=== PATIENT | female | born 1960 | race African-American/Black ===

== ENCOUNTER 2017-05-27 09:32 | Emergency (ER) | payer MEDICAID ==
[~2017-05-27] VITALS: Ht 167.6 cm; Wt 76.0 kg
[~2017-05-27 09:32] MED LIST: AMLO1TAB39 PO; ASPI-1159 PO; ATOR40TA70 PO; CHLO25TA27 PO; CHOL20004 PO; CITA20TA19 PO; DIVA-18 PO; LOSA50TA20 PO
[2017-05-27] MEDS ORDERED: LORAZEPAM 1MG TABLET PO ONE (10:45)
[2017-05-27] MEDS ORDERED: ACETAMINOPHEN WITH CODEINE 300/30MG TABLET PO ONE ×2 (10:45→12:30)
[2017-05-27 13:10] VITALS: BP 127/85
== END 2017-05-27 14:01 | disposition home or self-care (01) ==
LOC: ER 09:32
DX: S06.0X0A Concussion without loss of consciousness, initial encounter (principal); F17.200 Nicotine dependence, unspecified, uncomplicated; I10 Essential (primary) hypertension; Z79.82 Long term (current) use of aspirin; Y08.89XA Assault by other specified means, initial encounter; Y93.89 Activity, other specified; Y92.89 Other specified places as the place of occurrence of the external cause; Y99.8 Other external cause status
CPT/HCPCS: 70450; 99284

== ENCOUNTER 2018-07-12 12:52 | Emergency (ER) | payer MEDICAID ==
[~2018-07-12] VITALS: Ht 167.6 cm; Wt 63.0 kg
[2018-07-12] MEDS ORDERED: OXYCODONE HCL 5MG TABLET PO ONE (20:00)
[2018-07-12] MEDS ORDERED: ACETAMINOPHEN 325MG TABLET PO ONE (21:15)
[2018-07-12 23:17] VITALS: BP 127/68
== END 2018-07-13 00:10 | disposition home or self-care (01) ==
LOC: ER 12:52
DX: M25.572 Pain in left ankle and joints of left foot (principal); I10 Essential (primary) hypertension; F17.200 Nicotine dependence, unspecified, uncomplicated; F14.10 Cocaine abuse, uncomplicated; Z88.6 Allergy status to analgesic agent; Z79.82 Long term (current) use of aspirin; V03.10XA Pedestrian on foot injured in collision with car, pick-up truck or van in traffic accident, initial encounter; Y93.89 Activity, other specified; Y92.488 Other paved roadways as the place of occurrence of the external cause
CPT/HCPCS: 73610; 99284

== ENCOUNTER 2021-12-06 02:13 | Inpatient (IN) | payer MEDICAID, OTHER ==
[~2021-12-06] VITALS: Ht 165.1 cm; Wt 69.9 kg
[~2021-12-06 02:13] MED LIST changes: -ASPI-1159 PO; +ASPI-1497 PO; -LOSA50TA20 PO; +LOSA50TA41 PO
[2021-12-06 04:39] LABS: BASOPHILS % 0.6 % (0.0-2.0); EOSINOPHILS % 0.1 % (0.0-5.0); HEMATOCRIT. 39.3 % (36.0-48.0); LYMPHOCYTES % 18.9 % (20.0-50.0); MEAN CORPUSCULAR HEMOGLOBIN 28.9 pg (28.0-32.0); MEAN CORPUSCULAR VOLUME 87.2 fL (81.0-99.0); MEAN PLATELET VOLUME 8.4 fl (7.4-10.4); MONOCYTES % 6.1 % (2.0-8.0); NEUTROPHILS % 74.3 % (40.0-76.0); PLATELET 264 x1000/uL (130-400); RED BLOOD CELL COUNT 4.51 mill/uL (4.2-5.4); RED CELL DISTRIBUTION WIDTH 14.7 % (11.6-14.6)
[2021-12-06 04:49] LABS: CHLORIDE 105 mEq/L (98-107)
[2021-12-06] MEDS ORDERED: IOHEXOL-300 100 ML BOTTLE ONE (07:24)
[2021-12-06] MEDS ORDERED: ACETAMINOPHEN 325MG TABLET PO PRN (07:30)
[2021-12-06] MEDS ORDERED: IPRATROPIUM/ALBUTEROL 0.5-3(2.5)MG/3ML NEB HHN PRN (07:30)
[2021-12-06] MEDS ORDERED: GUAIFENESIN 200MG/10ML SUGAR FREE UDC PO PRN (07:30)
[2021-12-06] MEDS ORDERED: ONDANSETRON HCL 4MG/2ML INJ IV PRN (07:30)
[2021-12-06] MEDS ORDERED: LORAZEPAM 2MG/ML CPJ IV PRN (07:30)
[2021-12-06] MEDS ORDERED: DIPHENHYDRAMINE 50MG/ML VIAL IV PRN (07:30)
[2021-12-06] MEDS ORDERED: HYDRALAZINE 20MG/ML VIAL IV PRN (07:30)
[2021-12-06] MEDS ORDERED: DOCUSATE SODIUM 100MG CAPSULE PO PRN (09:00)
[2021-12-06] MEDS ORDERED: MAGNESIUM/ALUMINUM HYDROXIDE/SIMETHICONE 30ML UDC PO PRN (09:00)
[2021-12-06] MEDS: ENOXAPARIN 40MG/0.4ML SYR SUBCUT SCH (10:34)
[2021-12-06] MEDS: HYDROCODONE/ACETAMINOPHEN 5/325MG TABLET PO PRN ×2 (10:34→16:22)
[2021-12-06] MEDS: MORPHINE SULFATE 2 MG/ML CPJ (NOT FOR IM USE) IV PRN (12:48)
[2021-12-06] MEDS: SODIUM CHLORIDE 0.9% INJ 3ML FLUSH IVF SCH ×2 (19:09→23:53)
[2021-12-06] MEDS ORDERED: NALOXONE HCL 0.4MG/ML VIAL IV PRN (21:45)
[2021-12-06] MEDS: CLONIDINE 0.1MG TABLET PO PRN (22:22)
[2021-12-06 22:29] LABS: CREATINE KINASE MB FRACTION 5.9 ng/mL (0.5-3.6)
[2021-12-07] VITALS (7 sets, daily range): BP systolic 127–177; BP diastolic 82–116
[2021-12-07] MEDS: SODIUM CHLORIDE 0.9% INJ 3ML FLUSH IVF SCH ×3 (06:22→22:03)
[2021-12-07] MEDS: CLONIDINE 0.1MG TABLET PO PRN (06:28)
[2021-12-07] MEDS: ENOXAPARIN 40MG/0.4ML SYR SUBCUT SCH (08:28)
[2021-12-07 12:03] LABS: BASOPHILS % 0.7 % (0.0-2.0); EOSINOPHILS % 1.2 % (0.0-5.0); HEMATOCRIT. 36.7 % (36.0-48.0); HEMOGLOBIN. 12.5 g/dL (12.0-16.0); MEAN CORPUSCULAR HEMOGLOBIN 29.5 pg (28.0-32.0); MEAN CORPUSCULAR VOLUME 86.6 fL (81.0-99.0); MEAN PLATELET VOLUME 8.5 fl (7.4-10.4); MONOCYTES % 7.6 % (2.0-8.0); NEUTROPHILS % 58.5 % (40.0-76.0); PLATELET 260 x1000/uL (130-400); RED BLOOD CELL COUNT 4.24 mill/uL (4.2-5.4); RED CELL DISTRIBUTION WIDTH 14.9 % (11.6-14.6)
[2021-12-07] MEDS: MORPHINE SULFATE 2 MG/ML CPJ (NOT FOR IM USE) IV PRN (12:08)
[2021-12-07 12:15] LABS: CHLORIDE 104 mEq/L (98-107)
[2021-12-08] VITALS (7 sets, daily range): BP systolic 141–180; BP diastolic 80–118
[2021-12-08] MEDS: SODIUM CHLORIDE 0.9% INJ 3ML FLUSH IVF SCH ×3 (05:59→21:02)
[2021-12-08] MEDS: ENOXAPARIN 30MG/0.3ML SYR SUBCUT SCH (08:36)
[2021-12-08] MEDS: HYDROCODONE/ACETAMINOPHEN 5/325MG TABLET PO PRN ×2 (08:36→14:02)
[2021-12-08] MEDS: CLONIDINE 0.1MG TABLET PO PRN (21:12)
[2021-12-09 04:00] VITALS: BP 170/90
[2021-12-09] MEDS: SODIUM CHLORIDE 0.9% INJ 3ML FLUSH IVF SCH (05:11)
[2021-12-09] MEDS: CLONIDINE 0.1MG TABLET PO PRN (05:13)
[2021-12-09 08:00] VITALS: BP 139/85
[2021-12-09] MEDS: ENOXAPARIN 30MG/0.3ML SYR SUBCUT SCH (09:46)
[2021-12-09 12:00] VITALS: BP 169/111
[2021-12-09 16:00] VITALS: BP 149/96
[2021-12-09 16:17] VITALS: BP 149/96
== END 2021-12-09 17:20 | disposition home or self-care (01) | DRG 203 ==
LOC: ER 02:13 → ENRESERV 20:10 → 7EST 21:05
PROVIDERS: ADMIT Internal Medicine; ATTEND Internal Medicine
DX: M94.0 Chondrocostal junction syndrome [Tietze] (principal); N17.0 Acute kidney failure with tubular necrosis; I11.9 Hypertensive heart disease without heart failure; K76.0 Fatty (change of) liver, not elsewhere classified; E78.5 Hyperlipidemia, unspecified; F10.129 Alcohol abuse with intoxication, unspecified; R77.8 Other specified abnormalities of plasma proteins; I36.1 Nonrheumatic tricuspid (valve) insufficiency; M25.562 Pain in left knee; V43.52XA Car driver injured in collision with other type car in traffic accident, initial encounter; Y92.410 Unspecified street and highway as the place of occurrence of the external cause; Z88.8 Allergy status to other drugs, medicaments and biological substances; Z79.899 Other long term (current) drug therapy; Z79.82 Long term (current) use of aspirin; Y93.89 Activity, other specified; Y92.89 Other specified places as the place of occurrence of the external cause; Y99.8 Other external cause status; M17.12 Unilateral primary osteoarthritis, left knee
CPT/HCPCS: 36415; 71046; 73560; 74177; 80053; 80320; 82550; 82553; 84443; 84484; 85025; 93005; 93306; 93970; 99285; J0360; J1650; J2270; J2405; Q9967; G0480

== ENCOUNTER 2023-12-15 23:26 | Inpatient (IN) | payer MEDICAID ==
[~2023-12-15] VITALS: Ht 167.6 cm; Wt 65.8 kg
[~2023-12-15 23:26] MED LIST changes: -AMLO1TAB39 PO; +ATEN-42 PO; +BLOO-1823 TP; +DOCU-150 GT; +FAMO20TA8 GT; +INSU100I53 SUBCUT; +SENN-257 GT; +TOBR40VI2 INH; +VANJ5 PO; +[UNRECOGNIZED DRUG - CODE] SQ
[2023-12-16] VITALS (7 sets, daily range): BP systolic 131–174; BP diastolic 97–107; PULSE 84–112; RESP 16–20; TEMP 97–97.8; O2SAT 88–100
[2023-12-16 01:08] LABS: BASOPHILS % 0.7 % (0.0-2.0); EOSINOPHILS % 2.4 % (0.0-5.0); HEMOGLOBIN. 11.6 g/dL (12.0-16.0); LYMPHOCYTES % 24.9 % (20.0-50.0); MEAN CORPUSCULAR HGB CONC 32.3 g/dL (31.0-37.0); MEAN CORPUSCULAR VOLUME 80.6 fL (81.0-99.0); MEAN PLATELET VOLUME 9.7 fl (7.4-10.4); MONOCYTES % 7.5 % (2.0-8.0); NEUTROPHILS % 64.5 % (40.0-76.0); PLATELET 257 x1000/uL (130-400); RED BLOOD CELL COUNT 4.47 mill/uL (4.2-5.4); RED CELL DISTRIBUTION WIDTH 17.6 % (11.6-14.6)
[2023-12-16 01:20] LABS: ALANINE AMINOTRANSFERASE 21 IU/L (10-49); ALBUMIN 4.3 g/dL (3.2-4.8); ASPARTATE AMINOTRANSFERASE 16 IU/L (<34); BILIRUBIN TOTAL 0.4 mg/dL (0.1-1.0); CALCIUM 9.1 mg/dL (8.7-10.4); CARBON DIOXIDE 29 mEq/L (21-32); CHLORIDE 102 mEq/L (98-107); CREATININE 0.7 mg/dL (0.6-1.0); GLUCOSE 92 mg/dL (70-105); POTASSIUM 3.7 mEq/L (3.5-5.1); SODIUM 138 mEq/L (136-145); TROPONIN I HIGH SENSITIVITY 21 ng/L (3.0-34); UREA NITROGEN BLOOD 32 mg/dL (9-23)
[2023-12-16 01:23] LABS: PROTEIN TOTAL 8.2 g/dL (6.0-8.3)
[2023-12-16] MEDS: PIPERACILLIN/TAZO 3.375G/50ML 50 ML IV ONE (01:40)
[2023-12-16] MEDS: SODIUM CHLORIDE 0.9% 1000ML BAG (SEPSIS BOLUS) IV ONE (01:40)
[2023-12-16] MEDS: VANCOMYCIN 1G PREMIX 200 ML IV ONE (02:30)
[2023-12-16] MEDS ORDERED: IPRATROPIUM/ALBUTEROL 0.5-3(2.5)MG/3ML NEB HHN PRN (05:00)
[2023-12-16] MEDS ORDERED: DOCUSATE SODIUM 100MG CAPSULE PO PRN (05:00)
[2023-12-16] MEDS ORDERED: MAGNESIUM/ALUMINUM HYDROXIDE/SIMETHICONE 30ML UDC PO PRN (05:00)
[2023-12-16] MEDS ORDERED: GUAIFENESIN 200MG/10ML SUGAR FREE UDC PO PRN (05:00)
[2023-12-16] MEDS ORDERED: DEXTROSE 50% WATER 50ML SYRINGE IV PRN (05:45)
[2023-12-16 05:52] LABS: CLARITY URINE CLEAR (CLEAR); COLOR URINE YELLOW (YELLOW); GLUCOSE URINE NEGATIVE (NEGATIVE); KETONES URINE NEGATIVE (NEGATIVE); LEUKOCYTE ESTERASE URINE 1+ (NEGATIVE); NITRITE URINE POSITIVE (NEGATIVE); OCCULT BLOOD URINE NEGATIVE (NEGATIVE); PH URINE 7.5 (4.5-8.0); PROTEIN URINE TRACE (NEGATIVE); SPECIFIC GRAVITY URINE 1.022 (1.005-1.030)
[2023-12-16 06:13] LABS: BG BASE EXCESS 0.7 mmol/L (-2.0-2.0); BG CARBOXYHEMOGLOBIN 0.3 % (0.5-1.5); BG DEOXYHEMOGLOBIN 1.1 % (0.0-5.0); BG FRACTION INSPIRED OXYGEN 36; BG HCO3 ACT 24.5 mmol/L (22.0-26.0); BG METHEMOGLOBIN 0.2 % (0.0-1.5); BG OXYGEN SATURATION 98.9 % (92.0-98.5); BG OXYHEMOGLOBIN 98.4 % (94.0-97.0); BG PCO2 36.5 mmHg (35.0-45.0); BG PH 7.445 (7.350-7.450); BG PO2 131.8 mmHg (75.0-100.0); BG SAMPLE SITE LEFT RADIAL; BG VENT MODE NASAL CANNULA
[2023-12-16] MEDS: MVI, ADULT NO.1 10 ML, FOLIC ACID 1 MG, THIAMINE HCL 100 MG in SODIUM CHLORIDE 0.9% 1,0... IV SCH (06:49)
[2023-12-16 06:53] LABS: BACTERIA URINE TRACE; RBC URINE NONE SEEN /hpf (0-2); SQUAMOUS EPITHELIAL CELL URINE FEW /lpf (RARE/1+)
[2023-12-16 07:51] LABS: BASOPHILS % 0.2 % (0.0-2.0); EOSINOPHILS % 0.8 % (0.0-5.0); HEMATOCRIT. 36.2 % (36.0-48.0); HEMOGLOBIN. 11.6 g/dL (12.0-16.0); LYMPHOCYTES % 15.8 % (20.0-50.0); MEAN CORPUSCULAR HEMOGLOBIN 25.8 pg (28.0-32.0); MEAN CORPUSCULAR VOLUME 80.6 fL (81.0-99.0); MEAN PLATELET VOLUME 9.7 fl (7.4-10.4); MONOCYTES % 6.1 % (2.0-8.0); NEUTROPHILS % 77.1 % (40.0-76.0); PLATELET 282 x1000/uL (130-400); RED BLOOD CELL COUNT 4.49 mill/uL (4.2-5.4); RED CELL DISTRIBUTION WIDTH 17.1 % (11.6-14.6); WHITE BLOOD COUNT 11.4 x1000/uL (4.5-11.0)
[2023-12-16 08:23] LABS: ALANINE AMINOTRANSFERASE 20 IU/L (10-49); ALBUMIN 4.1 g/dL (3.2-4.8); ASPARTATE AMINOTRANSFERASE 19 IU/L (<34); BILIRUBIN TOTAL 0.6 mg/dL (0.1-1.0); CALCIUM 8.7 mg/dL (8.7-10.4); CARBON DIOXIDE 26 mEq/L (21-32); CHLORIDE 104 mEq/L (98-107); CREATININE 0.7 mg/dL (0.6-1.0); GLUCOSE 110 mg/dL (70-105); IRON 17 ug/dL (50-170); PHOSPHORUS 2.6 mg/dL (2.5-4.9); POTASSIUM 4.1 mEq/L (3.5-5.1); PROTEIN TOTAL 8.1 g/dL (6.0-8.3); SODIUM 136 mEq/L (136-145); T4 FREE 1.15 ng/dL (0.89-1.76); THYROID STIMULATING HORMONE 0.39 uIU/mL (0.55-4.78); TOTAL IRON BINDING CAPACITY 506 ug/dl (250-425); UREA NITROGEN BLOOD 26 mg/dL (9-23)
[2023-12-16 08:38] LABS: FOLIC ACID (FOLATE) SERUM > 20.00 ng/mL (>5.38); VITAMIN B12 SERUM 1166 pg/mL (211-911)
[2023-12-16] MEDS: INSULIN LISPRO 100 UNITS/ML SUBCUT SCH (11:39)
[2023-12-16] MEDS: BLOOD SUGAR DIAGNOSTIC STRIP TEST SCH (11:39)
[2023-12-16] MEDS: PANTOPRAZOLE SODIUM 40 MG/VIAL IV SCH (12:23)
[2023-12-16] MEDS ORDERED: AZITHROMYCIN 500MG/250ML 250 ML IV SCH (13:15)
[2023-12-16] MEDS ORDERED: CEFEPIME 1GM IN DEXT 5% 50ML IV SCH (13:15)
[2023-12-16] MEDS: CEFEPIME 1GM/50ML 50 ML IV SCH (14:04)
[2023-12-16] MEDS: DOXYCYCLINE 100MG/100ML 100 ML IV SCH (15:12)
[2023-12-16] MEDS: SODIUM CHLORIDE 10% FOR INH 15ML NEB INH NR (15:56)
[2023-12-16] MEDS: IPRATROPIUM/ALBUTEROL 0.5-3(2.5)MG/3ML NEB HHN SCH (15:56)
[2023-12-16] MEDS: HYDRALAZINE 20MG/ML VIAL IV PRN (17:23)
[2023-12-16] MEDS: BUDESONIDE 0.5MG/2ML NEB HHN SCH (20:36)
[2023-12-17] VITALS (10 sets, daily range): BP systolic 125–156; BP diastolic 60–96; PULSE 92–113; RESP 16–22; TEMP 98–101.3; O2SAT 99
[2023-12-17] MEDS: VANCOMYCIN 1.25GM PMX (XELLIA) 250 ML IV SCH (21:11)
[2023-12-18] VITALS (9 sets, daily range): BP systolic 129–164; BP diastolic 76–94; PULSE 92–103; RESP 17–20; TEMP 97.3–98.2; O2SAT 96
[2023-12-18] MEDS: CEFEPIME 2GM/100ML 100 ML IV SCH (09:26)
[2023-12-18] MEDS: FAMOTIDINE 20MG/2ML VIAL IV SCH (09:26)
[2023-12-18] MEDS: VANCOMYCIN 750MG/150ML IV SCH (10:46)
[2023-12-18 11:34] LABS: BASOPHILS % 0.2 % (0.0-2.0); HEMATOCRIT. 30.3 % (36.0-48.0); HEMOGLOBIN. 9.6 g/dL (12.0-16.0); LYMPHOCYTES % 15.2 % (20.0-50.0); MEAN CORPUSCULAR HEMOGLOBIN 25.7 pg (28.0-32.0); MEAN CORPUSCULAR HGB CONC 31.8 g/dL (31.0-37.0); MEAN CORPUSCULAR VOLUME 80.9 fL (81.0-99.0); MEAN PLATELET VOLUME 9.1 fl (7.4-10.4); NEUTROPHILS % 72.6 % (40.0-76.0); PLATELET 257 x1000/uL (130-400); RED BLOOD CELL COUNT 3.75 mill/uL (4.2-5.4); RED CELL DISTRIBUTION WIDTH 17.5 % (11.6-14.6); WHITE BLOOD COUNT 7.3 x1000/uL (4.5-11.0)
[2023-12-18 12:01] LABS: CALCIUM 8.8 mg/dL (8.7-10.4); CARBON DIOXIDE 21 mEq/L (21-32); CHLORIDE 107 mEq/L (98-107); CREATININE 0.6 mg/dL (0.6-1.0); GLUCOSE 149 mg/dL (70-105); PHOSPHORUS 2.5 mg/dL (2.5-4.9); SODIUM 137 mEq/L (136-145); UREA NITROGEN BLOOD 13 mg/dL (9-23)
[2023-12-18] MEDS: CLONIDINE 0.1MG TABLET PO PRN (19:39)
[2023-12-18] MEDS: ACETAMINOPHEN 650MG/20.3ML UDC GT PRN (19:40)
[2023-12-19] VITALS (10 sets, daily range): BP systolic 113–157; BP diastolic 67–91; PULSE 19–98; RESP 18–23; TEMP 97.4–99.1; O2SAT 98
[2023-12-19 06:26] LABS: BASOPHILS % 0.2 % (0.0-2.0); DIFFERENTIAL COMMENT 0; EOSINOPHILS % 3.4 % (0.0-5.0); HEMATOCRIT. 28.1 % (36.0-48.0); HEMOGLOBIN. 9.3 g/dL (12.0-16.0); LYMPHOCYTES % 22.5 % (20.0-50.0); MEAN CORPUSCULAR HEMOGLOBIN 26.3 pg (28.0-32.0); MEAN CORPUSCULAR VOLUME 79.7 fL (81.0-99.0); MEAN PLATELET VOLUME 9.6 fl (7.4-10.4); MONOCYTES % 7.5 % (2.0-8.0); NEUTROPHILS % 66.4 % (40.0-76.0); PLATELET 271 x1000/uL (130-400); RED BLOOD CELL COUNT 3.52 mill/uL (4.2-5.4); RED CELL DISTRIBUTION WIDTH 17.1 % (11.6-14.6); WHITE BLOOD COUNT 6.7 x1000/uL (4.5-11.0)
[2023-12-19 06:31] LABS: CALCIUM 8.7 mg/dL (8.7-10.4); CARBON DIOXIDE 23 mEq/L (21-32); CHLORIDE 106 mEq/L (98-107); CREATININE 0.6 mg/dL (0.6-1.0); GLUCOSE 108 mg/dL (70-105); POTASSIUM 4.2 mEq/L (3.5-5.1); SODIUM 137 mEq/L (136-145); UREA NITROGEN BLOOD 17 mg/dL (9-23)
[2023-12-20] VITALS (10 sets, daily range): BP systolic 119–144; BP diastolic 84–101; PULSE 80–103; RESP 18–20; TEMP 98.1–102.2
[2023-12-20] MEDS: ONDANSETRON HCL 4MG/2ML INJ IV PRN (02:49)
[2023-12-20 13:34] LABS: BASOPHILS % 0.2 % (0.0-2.0); DIFFERENTIAL COMMENT 0; EOSINOPHILS % 2.6 % (0.0-5.0); HEMATOCRIT. 30.4 % (36.0-48.0); HEMOGLOBIN. 9.8 g/dL (12.0-16.0); LYMPHOCYTES % 20.8 % (20.0-50.0); MEAN CORPUSCULAR HEMOGLOBIN 25.6 pg (28.0-32.0); MEAN CORPUSCULAR HGB CONC 32.3 g/dL (31.0-37.0); MEAN CORPUSCULAR VOLUME 79.3 fL (81.0-99.0); MEAN PLATELET VOLUME 8.7 fl (7.4-10.4); MONOCYTES % 8.6 % (2.0-8.0); NEUTROPHILS % 67.8 % (40.0-76.0); PLATELET 345 x1000/uL (130-400); RED BLOOD CELL COUNT 3.83 mill/uL (4.2-5.4); RED CELL DISTRIBUTION WIDTH 17.2 % (11.6-14.6); WHITE BLOOD COUNT 8.4 x1000/uL (4.5-11.0)
[2023-12-20 13:50] LABS: CALCIUM 9.2 mg/dL (8.7-10.4); CARBON DIOXIDE 24 mEq/L (21-32); CHLORIDE 107 mEq/L (98-107); CREATININE 0.6 mg/dL (0.6-1.0); GLUCOSE 89 mg/dL (70-105); POTASSIUM 4.1 mEq/L (3.5-5.1); SODIUM 138 mEq/L (136-145); UREA NITROGEN BLOOD 18 mg/dL (9-23)
[2023-12-20] MEDS: ENOXAPARIN 40MG/0.4ML SYR SUBCUT SCH (18:32)
[2023-12-21] VITALS (10 sets, daily range): BP systolic 126–147; BP diastolic 74–93; PULSE 80–101; RESP 14–22; TEMP 97.6–99.3
[2023-12-21 09:31] LABS: BASOPHILS % 0.4 % (0.0-2.0); DIFFERENTIAL COMMENT 0; HEMOGLOBIN. 9.2 g/dL (12.0-16.0); LYMPHOCYTES % 23.9 % (20.0-50.0); MEAN CORPUSCULAR HGB CONC 32.8 g/dL (31.0-37.0); MEAN CORPUSCULAR VOLUME 79.4 fL (81.0-99.0); MONOCYTES % 8.9 % (2.0-8.0); NEUTROPHILS % 60.8 % (40.0-76.0); PLATELET 342 x1000/uL (130-400); RED BLOOD CELL COUNT 3.53 mill/uL (4.2-5.4); WHITE BLOOD COUNT 6.9 x1000/uL (4.5-11.0)
[2023-12-21 11:06] LABS: CALCIUM 9.1 mg/dL (8.7-10.4); CARBON DIOXIDE 22 mEq/L (21-32); CHLORIDE 106 mEq/L (98-107); CREATININE 0.6 mg/dL (0.6-1.0); GLUCOSE 91 mg/dL (70-105); POTASSIUM 4.1 mEq/L (3.5-5.1); SODIUM 138 mEq/L (136-145); UREA NITROGEN BLOOD 19 mg/dL (9-23)
[2023-12-22] VITALS: BP 129/79; PULSE 99; RESP 22; TEMP 97.8
[2023-12-22 04:00] VITALS: BP 150/91; PULSE 89; RESP 20; TEMP 97.3
[2023-12-22 06:43] LABS: BASOPHILS % 0.4 % (0.0-2.0); DIFFERENTIAL COMMENT 0; HEMATOCRIT. 30.1 % (36.0-48.0); HEMOGLOBIN. 9.8 g/dL (12.0-16.0); MEAN CORPUSCULAR HEMOGLOBIN 25.9 pg (28.0-32.0); MEAN CORPUSCULAR HGB CONC 32.6 g/dL (31.0-37.0); MEAN CORPUSCULAR VOLUME 79.2 fL (81.0-99.0); MEAN PLATELET VOLUME 8.5 fl (7.4-10.4); MONOCYTES % 8.5 % (2.0-8.0); NEUTROPHILS % 56.1 % (40.0-76.0); PLATELET 396 x1000/uL (130-400); WHITE BLOOD COUNT 7.2 x1000/uL (4.5-11.0)
[2023-12-22 07:03] LABS: CALCIUM 9.2 mg/dL (8.7-10.4); CARBON DIOXIDE 24 mEq/L (21-32); CHLORIDE 107 mEq/L (98-107); CREATININE 0.6 mg/dL (0.6-1.0); GLUCOSE 108 mg/dL (70-105); SODIUM 139 mEq/L (136-145); UREA NITROGEN BLOOD 16 mg/dL (9-23)
[2023-12-22 08:00] VITALS: BP 146/86; PULSE 102; RESP 15; TEMP 101
[2023-12-22 12:00] VITALS: BP 128/64; PULSE 106; RESP 17; TEMP 98.6
[2023-12-22 12:33] VITALS: BP 128/64; PULSE 106; TEMP 98.6; O2SAT 98
[2023-12-22 16:00] VITALS: BP 165/92; PULSE 100; RESP 18; TEMP 97.9
== END 2023-12-22 19:15 | DRG 720 ==
LOC: ER 23:26 → 7EST 12-16 03:58 → EDBEDREQSVC 12-16 08:02 → 7EST 12-16 10:28
PROVIDERS: ADMIT Internal Medicine; ATTEND Internal Medicine
DX: A41.9 Sepsis, unspecified organism (principal); J96.01 Acute respiratory failure with hypoxia; J69.0 Pneumonitis due to inhalation of food and vomit; G92.8 Other toxic encephalopathy; I11.0 Hypertensive heart disease with heart failure; E43 Unspecified severe protein-calorie malnutrition; I50.32 Chronic diastolic (congestive) heart failure; J44.0 Chronic obstructive pulmonary disease with (acute) lower respiratory infection; N39.0 Urinary tract infection, site not specified; E11.9 Type 2 diabetes mellitus without complications; K21.9 Gastro-esophageal reflux disease without esophagitis; N28.9 Disorder of kidney and ureter, unspecified; E16.2 Hypoglycemia, unspecified; Z20.822 Contact with and (suspected) exposure to COVID-19; Z88.6 Allergy status to analgesic agent; Z74.01 Bed confinement status; Z93.1 Gastrostomy status; Z79.82 Long term (current) use of aspirin; Z98.2 Presence of cerebrospinal fluid drainage device; Z86.711 Personal history of pulmonary embolism; Z68.23 Body mass index [BMI] 23.0-23.9, adult
CPT/HCPCS: 36415; 36600; 71045; 74176; 80048; 80053; 80202; 81003; 82375; 82607; 82746; 82805; 82962; 83036; 83540; 83550; 83605; 83735; 83880; 84100; 84145; 84439; 84443; 84484; 85025; 87426; 87804; 93005; 93306; 93970; 94640; 99285; C1893; C9113; J0360; J0692; J1650; J1815; J2405; J2543; J3370; J3411; J3490; J7030; J7131; J7626

== ENCOUNTER 2023-12-28 09:30 | Inpatient (IN) | payer MEDICAID ==
[~2023-12-28] VITALS: Ht 167.6 cm; Wt 63.0 kg
[~2023-12-28 09:30] MED LIST changes: -ASPI-1497 PO; -ATEN-42 PO; -ATOR40TA70 PO; -CHLO25TA27 PO; -CHOL20004 PO; -CITA20TA19 PO; -DIVA-18 PO; -DOCU-150 GT; -LOSA50TA41 PO; -SENN-257 GT
[2023-12-28 10:23] LABS: BASOPHILS % 0.2 % (0.0-2.0); EOSINOPHILS % 0.1 % (0.0-5.0); HEMATOCRIT. 34.1 % (36.0-48.0); HEMOGLOBIN. 10.9 g/dL (12.0-16.0); LYMPHOCYTES % 13.6 % (20.0-50.0); MEAN CORPUSCULAR HEMOGLOBIN 25.6 pg (28.0-32.0); MEAN CORPUSCULAR VOLUME 80.1 fL (81.0-99.0); MEAN PLATELET VOLUME 8.4 fl (7.4-10.4); MONOCYTES % 2.8 % (2.0-8.0); NEUTROPHILS % 83.3 % (40.0-76.0); PLATELET 447 x1000/uL (130-400); RED BLOOD CELL COUNT 4.26 mill/uL (4.2-5.4); RED CELL DISTRIBUTION WIDTH 17.2 % (11.6-14.6); WHITE BLOOD COUNT 9.7 x1000/uL (4.5-11.0)
[2023-12-28 10:28] LABS: CLARITY URINE TURBID (CLEAR); COLOR URINE YELLOW (YELLOW); GLUCOSE URINE NEGATIVE (NEGATIVE); KETONES URINE NEGATIVE (NEGATIVE); LEUKOCYTE ESTERASE URINE TRACE (NEGATIVE); NITRITE URINE NEGATIVE (NEGATIVE); OCCULT BLOOD URINE NEGATIVE (NEGATIVE); PH URINE 8.5 (4.5-8.0); PROTEIN URINE 2+ (NEGATIVE); SPECIFIC GRAVITY URINE 1.014 (1.005-1.030); UROBILINOGEN URINE 0.2 E.U./dL (0.2-1.0)
[2023-12-28 10:30] LABS: PROTHROMBIN TIME 11.5 sec (9.6-11.0)
[2023-12-28 10:34] LABS: ALANINE AMINOTRANSFERASE 40 IU/L (10-49); ASPARTATE AMINOTRANSFERASE 28 IU/L (<34); BILIRUBIN TOTAL 0.3 mg/dL (0.1-1.0); CARBON DIOXIDE 30 mEq/L (21-32); CHLORIDE 104 mEq/L (98-107); CREATININE 0.6 mg/dL (0.6-1.0); GLUCOSE 164 mg/dL (70-105); POTASSIUM 3.7 mEq/L (3.5-5.1); PROTEIN TOTAL 7.5 g/dL (6.0-8.3); SODIUM 140 mEq/L (136-145); TROPONIN I HIGH SENSITIVITY 8 ng/L (3.0-34); UREA NITROGEN BLOOD 16 mg/dL (9-23)
[2023-12-28 10:43] LABS: BACTERIA URINE 3+; RBC URINE 0-2 /hpf (0-2); SQUAMOUS EPITHELIAL CELL URINE 3+ /lpf (RARE/1+); YEAST URINE NONE SEEN
[2023-12-28] MEDS: ONDANSETRON HCL 4MG/2ML INJ IV ONE (11:09)
[2023-12-28] MEDS: CEFTRIAXONE 1GM/50ML 50 ML IV ONE (12:02)
[2023-12-28 13:27] LABS: TROPONIN I HIGH SENSITIVITY 9 ng/L (3.0-34)
[2023-12-28] MEDS ORDERED: IPRATROPIUM/ALBUTEROL 0.5-3(2.5)MG/3ML NEB HHN PRN (20:15)
[2023-12-28] MEDS ORDERED: DEXTROSE 50% WATER 50ML SYRINGE IV PRN (20:15)
[2023-12-28] MEDS ORDERED: VANCOMYCIN 1G PREMIX 200 ML IV SCH (20:15)
[2023-12-28] MEDS ORDERED: ACETAMINOPHEN 650MG/20.3ML UDC GT PRN (20:15)
[2023-12-28] MEDS ORDERED: DOCUSATE SODIUM SUGAR FREE 100MG/10ML UDC GT PRN (20:15)
[2023-12-28] MEDS ORDERED: HYDRALAZINE 20MG/ML VIAL IV PRN (20:15)
[2023-12-28] MEDS ORDERED: MAGNESIUM/ALUMINUM HYDROXIDE/SIMETHICONE 30ML UDC GT PRN (20:15)
[2023-12-28] MEDS ORDERED: ONDANSETRON HCL 4MG/2ML INJ IV PRN (20:15)
[2023-12-28] MEDS ORDERED: VANCOMYCIN 1250MG in DEXTROSE 5% WATER 250ML IV NR (21:00)
[2023-12-28] MEDS ORDERED: VANCOMYCIN 1.25GM PMX (XELLIA) 250 ML IV NR (21:01)
[2023-12-28] MEDS: BLOOD SUGAR DIAGNOSTIC STRIP TEST SCH (22:00)
[2023-12-28] MEDS: INSULIN LISPRO 100 UNITS/ML SUBCUT SCH (22:00)
[2023-12-28] MEDS: ENOXAPARIN 40MG/0.4ML SYR SUBCUT SCH (22:00)
[2023-12-28] MEDS: PIPERACILLIN/TAZO 3.375G/50ML 50 ML IV SCH (22:03)
[2023-12-28] MEDS: LABETALOL 5MG/ML SYR 20 MG/4 ML SYRINGE IV NR (22:09)
[2023-12-28 22:25] LABS: IRON 19 ug/dL (50-170); LACTIC ACID 2.3 mmol/L (0.4-2.0); TOTAL IRON BINDING CAPACITY 471 ug/dl (250-425)
[2023-12-28 22:39] LABS: FERRITIN 683 ng/mL (10-291); VITAMIN B12 SERUM 1665 pg/mL (211-911)
[2023-12-28 23:00] VITALS: BP 131/84; PULSE 79; RESP 18; TEMP 98.1
[2023-12-28 23:04] LABS: FOLIC ACID (FOLATE) SERUM > 24.00 ng/mL (>5.38)
[2023-12-29] VITALS: BP_SYST 131; BP_SYST 137; BP_DIAS 84; BP_DIAS 85; PULSE 79; RESP 18; TEMP 98.1; TEMP 98.2
[2023-12-29 04:00] VITALS: BP 141/88; PULSE 76; RESP 20; TEMP 98.2
[2023-12-29 07:22] LABS: BASOPHILS % 0.2 % (0.0-2.0); EOSINOPHILS % 1.5 % (0.0-5.0); HEMATOCRIT. 33.3 % (36.0-48.0); HEMOGLOBIN. 10.6 g/dL (12.0-16.0); LYMPHOCYTES % 10.2 % (20.0-50.0); MEAN CORPUSCULAR HGB CONC 31.8 g/dL (31.0-37.0); MEAN CORPUSCULAR VOLUME 81.7 fL (81.0-99.0); MEAN PLATELET VOLUME 8.9 fl (7.4-10.4); MONOCYTES % 5.2 % (2.0-8.0); NEUTROPHILS % 82.9 % (40.0-76.0); PLATELET 456 x1000/uL (130-400); RED BLOOD CELL COUNT 4.07 mill/uL (4.2-5.4); RED CELL DISTRIBUTION WIDTH 16.9 % (11.6-14.6); WHITE BLOOD COUNT 17.7 x1000/uL (4.5-11.0)
[2023-12-29 07:39] LABS: ALANINE AMINOTRANSFERASE 39 IU/L (10-49); ALBUMIN 4.2 g/dL (3.2-4.8); ASPARTATE AMINOTRANSFERASE 21 IU/L (<34); BILIRUBIN TOTAL 0.5 mg/dL (0.1-1.0); CALCIUM 9.6 mg/dL (8.7-10.4); CARBON DIOXIDE 29 mEq/L (21-32); CHLORIDE 103 mEq/L (98-107); CHOLESTEROL 151 mg/dL (<200); CREATININE 0.6 mg/dL (0.6-1.0); GLUCOSE 101 mg/dL (70-105); HDL CHOLESTEROL 56 mg/dL (>65); LDL CHOLESTEROL 90 mg/dL (5-100); POTASSIUM 3.2 mEq/L (3.5-5.1); PROTEIN TOTAL 8.2 g/dL (6.0-8.3); SODIUM 141 mEq/L (136-145); T4 FREE 1.19 ng/dL (0.89-1.76); THYROID STIMULATING HORMONE 0.54 uIU/mL (0.55-4.78); TRIGLYCERIDE 59 mg/dL (0-150); UREA NITROGEN BLOOD 20 mg/dL (9-23)
[2023-12-29 08:00] VITALS: BP 150/85; PULSE 89; RESP 18; TEMP 97.9
[2023-12-29] MEDS: PANTOPRAZOLE SODIUM 40 MG/VIAL IV SCH (08:44)
[2023-12-29] MEDS: DEXT 5%/0.45% NACL 1000ML 1,000 ML IV SCH (08:48)
[2023-12-29] MEDS ORDERED: VANCOMYCIN 750MG/150ML IV SCH (09:00)
[2023-12-29] MEDS: VANCOMYCIN 1.25GM PMX (XELLIA) 250 ML IV NR (11:59)
[2023-12-29 12:00] VITALS: BP 160/90; PULSE 80; RESP 18; TEMP 98.1
[2023-12-29] MEDS: CLONIDINE 0.1MG TABLET GT PRN (13:32)
[2023-12-29 16:00] VITALS: BP 156/94; PULSE 85; RESP 20; TEMP 97.1
[2023-12-29] MEDS: POTASSIUM CHLORIDE 20MEQ/PACKET PO NR (18:17)
[2023-12-29 20:00] VITALS: BP 118/74; PULSE 80; RESP 18; TEMP 98.9
[2023-12-29] MEDS: VANCOMYCIN 750MG/150ML IV SCH (20:55)
[2023-12-30] VITALS: BP 125/85; PULSE 85; RESP 21; TEMP 97.8
[2023-12-30 04:00] VITALS: BP 131/83; PULSE 86; RESP 22; TEMP 98.8
[2023-12-30 08:00] VITALS: BP 119/77; PULSE 81; RESP 18; TEMP 96.6
[2023-12-30 12:00] VITALS: BP 130/86; PULSE 80; RESP 18; TEMP 97.7
[2023-12-30] MEDS ORDERED: SODIUM HYPOCHLORITE SOLUTION (0.5%)FULL STRENGTH TOP SCH (13:00)
[2023-12-30] MEDS: FERROUS SULFATE 325MG TABLET PO SCH (13:55)
[2023-12-30 14:01] VITALS: BP 130/86; PULSE 80; TEMP 97.7; O2SAT 97
[2023-12-31] MEDS ORDERED: FAMOTIDINE 20MG/2ML VIAL IV SCH (09:00)
[2023-12-31] MEDS ORDERED: VANCOMYCIN 1GM/200ML PMX (BAXTER) IV SCH (11:00)
== END 2023-12-30 15:50 | DRG 720 ==
LOC: ER 09:30 → 8WST 12:22 → EDBEDREQTM 12:24 → EDBEDREQ 12:24
PROVIDERS: ADMIT Hospitalist; ATTEND Hospitalist
DX: A41.9 Sepsis, unspecified organism (principal); G92.8 Other toxic encephalopathy; E46 Unspecified protein-calorie malnutrition; E11.52 Type 2 diabetes mellitus with diabetic peripheral angiopathy with gangrene; L89.159 Pressure ulcer of sacral region, unspecified stage; F03.90 Unspecified dementia, unspecified severity, without behavioral disturbance, psychotic disturbance, mood disturbance, and anxiety; L03.116 Cellulitis of left lower limb; D50.9 Iron deficiency anemia, unspecified; N39.0 Urinary tract infection, site not specified; Z68.22 Body mass index [BMI] 22.0-22.9, adult; K52.9 Noninfective gastroenteritis and colitis, unspecified; I11.0 Hypertensive heart disease with heart failure; I16.0 Hypertensive urgency; I25.10 Atherosclerotic heart disease of native coronary artery without angina pectoris; I50.32 Chronic diastolic (congestive) heart failure; M62.461 Contracture of muscle, right lower leg; M62.462 Contracture of muscle, left lower leg; J44.9 Chronic obstructive pulmonary disease, unspecified; R13.10 Dysphagia, unspecified; K21.9 Gastro-esophageal reflux disease without esophagitis; Z74.01 Bed confinement status; Z86.73 Personal history of transient ischemic attack (TIA), and cerebral infarction without residual deficits; Z88.6 Allergy status to analgesic agent; Z93.1 Gastrostomy status; Z98.2 Presence of cerebrospinal fluid drainage device; Z88.8 Allergy status to other drugs, medicaments and biological substances; Z79.899 Other long term (current) drug therapy
CPT/HCPCS: 36415; 71045; 73630; 74176; 80053; 80061; 80202; 81003; 82607; 82728; 82746; 82962; 83036; 83540; 83550; 83605; 83880; 84145; 84439; 84443; 84484; 85025; 86850; 86900; 93005; 93923; 99285; C9113; J0696; J1650; J2405; J2543; J3370; J3490; J7060

== ENCOUNTER 2025-07-03 09:05 | Inpatient (IN) | payer MEDICAID ==
[~2025-07-03] VITALS: Ht 165.1 cm; Wt 71.7 kg
[2025-07-03] VITALS (41 sets, daily range): BP systolic 87–132; BP diastolic 59–92; PULSE 71–90; RESP 14–30; TEMP 36.4–36.9; O2SAT 94–100
[~2025-07-03 09:05] MED LIST changes: +ASCO500C18 GT; +BISA10SU62 RC; +CLON0.1T PO; +DOCU100T MT; +ENOX40DI8 SUBCUT; +FERR325T6 GT; +IPRA3AMP9 NEB; +PANT40TA51 GT; +SENN-362 GT
[2025-07-03] MEDS: SODIUM CHLORIDE 0.9% (SEPSIS BOLUS) IV ONE (09:55)
[2025-07-03] MEDS: ACETAMINOPHEN 1000MG/100ML 100 ML IV ONE (10:24)
[2025-07-03] MEDS: VANCOMYCIN 1G PREMIX 200 ML IV ONE (11:00)
[2025-07-03] MEDS: PIPERACILLIN/TAZO 3.375G/50ML 50 ML IV ONE (11:00)
[2025-07-03 11:16] LABS: BASOPHILS % 0.3 % (0.0-2.0); EOSINOPHILS % 0.3 % (0.0-5.0); HEMATOCRIT. 28.0 % (36.0-48.0); HEMOGLOBIN. 8.6 g/dL (12.0-16.0); LYMPHOCYTES % 7.3 % (20.0-50.0); MEAN PLATELET VOLUME 10.4 fl (7.4-10.4); MONOCYTES % 4.1 % (2.0-8.0); NEUTROPHILS % 88.0 % (40.0-76.0); PLATELET 145 x1000/uL (130-400); RED BLOOD CELL COUNT 3.58 mill/uL (4.2-5.4); RED CELL DISTRIBUTION WIDTH 18.2 % (11.6-14.6)
[2025-07-03 11:31] LABS: INR 1.2
[2025-07-03 11:32] LABS: TROPONIN I HIGH SENSITIVITY 34 ng/L (3.0-34)
[2025-07-03 11:33] LABS: ASPARTATE AMINOTRANSFERASE 59 IU/L (<34); BILIRUBIN DIRECT 0.6 mg/dL (<=3.0); BILIRUBIN TOTAL 0.8 mg/dL (0.1-1.0); PROTEIN TOTAL 6.0 g/dL (6.0-8.3)
[2025-07-03 11:35] LABS: CREATININE 2.6 mg/dL (0.6-1.0)
[2025-07-03] MEDS ORDERED: NOREPINEPHRINE 8MG/250ML PMX 250 ML IV ONE (11:35)
[2025-07-03 11:37] LABS: UREA NITROGEN BLOOD 103 mg/dL (9-23)
[2025-07-03] MEDS: NOREPINEPHRINE 8MG/250ML PMX 250ML IV PRN (11:45)
[2025-07-03] MEDS ORDERED: NOREPINEPHRINE 8 MG in DEXT 5% WATER 242 ML IV PRN (11:45)
[2025-07-03] MEDS: SODIUM CHLORIDE 0.9% 1,000 ML IV ONE (11:51)
[2025-07-03] MEDS ORDERED: IPRATROPIUM/ALBUTEROL 0.5-3(2.5)MG/3ML NEB HHN PRN (13:15)
[2025-07-03] MEDS ORDERED: ACETAMINOPHEN 325MG TABLET PO PRN (13:15)
[2025-07-03] MEDS ORDERED: ONDANSETRON HCL 4MG/2ML INJ IV PRN (13:15)
[2025-07-03] MEDS ORDERED: BISACODYL 10MG SUPP RC PRN (13:30)
[2025-07-03] MEDS ORDERED: DEXTROSE 50% WATER 50ML SYRINGE IV PRN (13:45)
[2025-07-03] MEDS ORDERED: SODIUM CHLORIDE 0.45% 1,000 ML IV SCH (14:00)
[2025-07-03] MEDS: SODIUM CHLORIDE 0.9% 1,000 ML IV SCH (14:00)
[2025-07-03] MEDS: LACTATED RINGERS 1,000 ML IV ONE ×2 (16:10→19:40)
[2025-07-03] MEDS: FAMOTIDINE 20MG/2ML VIAL IV SCH (16:10)
[2025-07-03] MEDS: CALCIUM GLUCONATE 1GM PREMIX 50 ML IV NR (16:11)
[2025-07-03] MEDS: ZINC SULFATE 220 MG ( 50 ) CAPSULE PO SCH (16:11)
[2025-07-03] MEDS: PIPERACILLIN/TAZO 3.375G/50ML 50 ML IV SCH (16:11)
[2025-07-03] MEDS: ASCORBIC ACID 500 MG TABLET PO SCH (16:11)
[2025-07-03] MEDS: AZITHROMYCIN 500MG/250ML 250 ML IV SCH (16:12)
[2025-07-03] MEDS: ENOXAPARIN 30MG/0.3ML SYR SUBCUT SCH (16:12)
[2025-07-03] MEDS: BLOOD SUGAR DIAGNOSTIC STRIP TEST SCH ×2 (16:54→21:00)
[2025-07-03] MEDS ORDERED: BLOOD SUGAR DIAGNOSTIC STRIP TEST SCH (17:00)
[2025-07-03] MEDS: INSULIN LISPRO 100 UNITS/ML SUBCUT SCH (18:36)
[2025-07-03] MEDS: POTASSIUM CHLORIDE 10 MEQ in SODIUM CHLORIDE 0.9% 1,000 ML IV SCH (20:36)
[2025-07-03] MEDS: SENNOSIDES 8.6MG TABLET GT SCH (21:28)
[2025-07-03 21:40] LABS: CLARITY URINE CLEAR (CLEAR); COLOR URINE YELLOW (YELLOW); GLUCOSE URINE NEGATIVE (NEGATIVE); KETONES URINE NEGATIVE (NEGATIVE); LEUKOCYTE ESTERASE URINE 3+ (NEGATIVE); NITRITE URINE NEGATIVE (NEGATIVE); OCCULT BLOOD URINE 3+ (NEGATIVE); PH URINE 8.0 (4.5-8.0); PROTEIN URINE 1+ (NEGATIVE); SPECIFIC GRAVITY URINE 1.011 (1.005-1.030); UROBILINOGEN URINE 1.0 E.U./dL (0.2-1.0)
[2025-07-03 21:47] LABS: *AMPHETAMINES SCREEN URINE NEGATIVE (NEGATIVE); *BARBITURATES SCREEN URINE NEGATIVE (NEGATIVE); *BENZODIAZEPINES SCREEN URINE NEGATIVE (NEGATIVE); *COCAINE SCREEN URINE NEGATIVE (NEGATIVE); CANNABINOID URINE SCREEN NEGATIVE (NEGATIVE); ECSTASY MDMA SCREEN URINE NEGATIVE (NEGATIVE); METHADONE URINE SCREEN NEGATIVE (NEGATIVE); OPIATES URINE SCREEN NEGATIVE (NEGATIVE); PHENCYCLIDINE URINE SCREEN NEGATIVE (NEGATIVE)
[2025-07-03 22:34] LABS: SQUAMOUS EPITHELIAL CELL URINE 1+ /lpf (RARE/1+)
[2025-07-03 22:35] LABS: BACTERIA URINE TRACE
[2025-07-03 22:59] LABS: TROPONIN I HIGH SENSITIVITY 10 ng/L (3.0-34)
[2025-07-03 23:26] LABS: PHOSPHORUS 1.0 mg/dL (2.5-4.9)
[2025-07-04] VITALS (99 sets, daily range): BP systolic 75–135; BP diastolic 57–90; PULSE 63–83; RESP 0–28; TEMP 36.2–36.6; O2SAT 90–100
[2025-07-04] MEDS: POTASSIUM PHOSPHATE 30 MMOL in DEXT 5% WATER 490 ML IV SCH (01:05)
[2025-07-04] MEDS: MAGNESIUM 4 G PREMIX 100 ML IV SCH (01:06)
[2025-07-04] MEDS ORDERED: LIDOCAINE HCL 1% 10 MG/ML 10ML VIAL ONE ×2 (07:15→13:02)
[2025-07-04 10:00] LABS: TRIGLYCERIDE 173.0 mg/dL (0-150)
[2025-07-04 10:01] LABS: LDL CHOLESTEROL 22.0 mg/dL (5-100); T4 FREE 0.77 ng/dL (0.89-1.76)
[2025-07-04 11:49] LABS: BASOPHILS % 0.4 % (0.0-2.0); EOSINOPHILS % 1.8 % (0.0-5.0); HEMATOCRIT. 30.6 % (36.0-48.0); HEMOGLOBIN. 9.5 g/dL (12.0-16.0); LYMPHOCYTES % 7.5 % (20.0-50.0); MEAN PLATELET VOLUME 10.7 fl (7.4-10.4); MONOCYTES % 3.2 % (2.0-8.0); NEUTROPHILS % 87.1 % (40.0-76.0); PLATELET 130 x1000/uL (130-400); RED BLOOD CELL COUNT 3.92 mill/uL (4.2-5.4); RED CELL DISTRIBUTION WIDTH 18.4 % (11.6-14.6)
[2025-07-04 11:52] LABS: ASPARTATE AMINOTRANSFERASE 29 IU/L (<34); BILIRUBIN DIRECT 0.3 mg/dL (<=3.0)
[2025-07-04 11:53] LABS: BILIRUBIN TOTAL 0.4 mg/dL (0.1-1.0); PROTEIN TOTAL 6.2 g/dL (6.0-8.3)
[2025-07-04] MEDS ORDERED: AZITHROMYCIN 500MG/250ML 250 ML IV SCH (15:00)
[2025-07-04] MEDS: VANCOMYCIN 1G PREMIX 200 ML IV SCH (15:04)
[2025-07-04 15:32] LABS: CREATININE 1.3 mg/dL (0.6-1.0); UREA NITROGEN BLOOD 59 mg/dL (9-23)
[2025-07-04 15:34] LABS: PHOSPHORUS 3.5 mg/dL (2.5-4.9)
[2025-07-04] MEDS ORDERED: DEXT 5%/0.45% NACL 1000ML 1,000 ML IV SCH (15:45)
[2025-07-04] MEDS: INSULIN LISPRO 100 UNITS/ML SUBCUT SCH (18:21)
[2025-07-04] MEDS ORDERED: CEFTAZIDIME PENTAHYDRATE IV SCH (19:15)
[2025-07-04] MEDS ORDERED: WATER IV SCH (19:15)
[2025-07-04] MEDS ORDERED: DEXTROSE 5% IV SCH (19:15)
[2025-07-04] MEDS ORDERED: PIPERACILLIN/TAZO 3.375G/50ML IV SCH (21:00)
[2025-07-04] MEDS: AMIKACIN SULFATE IV SCH (21:26)
[2025-07-04] MEDS: DEXT 5% IV SCH (21:26)
[2025-07-04] MEDS: CEFTAZIDIME PENTAHYDRATE 1 G in DEXTROSE 5% WATER 50 ML IV SCH (21:26)
[2025-07-04] MEDS: WATER IV SCH (21:26)
[2025-07-04] MEDS: POTASSIUM CHLORIDE 10 MEQ in SODIUM CHLORIDE 0.45% 1,000 ML IV SCH (21:27)
[2025-07-04] MEDS: DEXT 5% WATER 500 ML IV ONE (23:45)
[2025-07-05] VITALS (65 sets, daily range): BP systolic 90–153; BP diastolic 62–105; PULSE 72–103; RESP 14–43; TEMP 36.4–37.1; O2SAT 92–100
[2025-07-05 08:13] LABS: BASOPHILS % 0.1 % (0.0-2.0); EOSINOPHILS % 3.3 % (0.0-5.0); HEMATOCRIT. 26.2 % (36.0-48.0); HEMOGLOBIN. 8.4 g/dL (12.0-16.0); LYMPHOCYTES % 8.9 % (20.0-50.0); MEAN PLATELET VOLUME 11.2 fl (7.4-10.4); MONOCYTES % 3.7 % (2.0-8.0); NEUTROPHILS % 84.0 % (40.0-76.0); PLATELET 127 x1000/uL (130-400); RED BLOOD CELL COUNT 3.37 mill/uL (4.2-5.4); RED CELL DISTRIBUTION WIDTH 18.1 % (11.6-14.6)
[2025-07-05 08:27] LABS: CREATININE 0.8 mg/dL (0.6-1.0); UREA NITROGEN BLOOD 37 mg/dL (9-23)
[2025-07-05 08:29] LABS: PHOSPHORUS 1.5 mg/dL (2.5-4.9)
[2025-07-05] MEDS: MIDODRINE HCL 5MG TABLET PO PRN (12:10)
[2025-07-05] MEDS: POTASSIUM PHOSPHATE 30 MMOL in DEXT 5% WATER 490 ML IV NR (12:15)
[2025-07-05] MEDS: CEFTAZIDIME PENTAHYDRATE 1 G in DEXTROSE 5% WATER 50 ML IV SCH (14:16)
[2025-07-05] MEDS: VANCOMYCIN 1.25GM/250ML IV SCH (14:16)
[2025-07-05] MEDS: POTASSIUM-SODIUM PHOSPHATE POWDER PACKET PO SCH (15:38)
[2025-07-05] MEDS: POTASSIUM CHLORIDE 20MEQ/PACKET GT NR (19:52)
[2025-07-05] MEDS: ACETAMINOPHEN 325MG TABLET PO PRN (19:52)
[2025-07-05] MEDS: IPRATROPIUM/ALBUTEROL 0.5-3(2.5)MG/3ML NEB HHN NR (20:06)
[2025-07-05 20:30] LABS: BG BASE EXCESS 2.8 mmol/L (-2.0-3.0); BG CARBOXYHEMOGLOBIN 1.1 % (0.5-1.5); BG DEOXYHEMOGLOBIN 1.7 % (0.0-5.0); BG FLOW(L/min) 2.00 L/min; BG FRACTION INSPIRED OXYGEN 28; BG HCO3 ACT 23.7 mmol/L (21.0-28.0); BG METHEMOGLOBIN 0.3 % (0.5-1.5); BG OXYGEN SATURATION 98.3 % (94.0-98.0); BG OXYHEMOGLOBIN 96.9 % (94.0-98.0); BG PCO2 24.4 mmHg (32.0-45.0); BG PH 7.606 (7.350-7.450); BG PO2 92.9 mmHg (83.0-108.0); BG SAMPLE SITE RIGHT RADIAL; BG TOTAL HEMOGLOBIN 9.1 g/dL (12.0-16.0); BG VENT MODE NASAL CANNULA
[2025-07-06] VITALS: BP 107/53; PULSE 91; RESP 22; TEMP 36.5; O2SAT 97
[2025-07-06 04:10] VITALS: BP 100/65; PULSE 99; RESP 19; TEMP 36.3; O2SAT 97
[2025-07-06 08:00] VITALS: BP 87/56; PULSE 96; RESP 20; TEMP 36.5; O2SAT 99
[2025-07-06 10:10] LABS: BASOPHILS % 0.1 % (0.0-2.0); EOSINOPHILS % 2.3 % (0.0-5.0); HEMATOCRIT. 24.4 % (36.0-48.0); HEMOGLOBIN. 7.6 g/dL (12.0-16.0); LYMPHOCYTES % 10.9 % (20.0-50.0); MEAN PLATELET VOLUME 10.6 fl (7.4-10.4); MONOCYTES % 3.6 % (2.0-8.0); NEUTROPHILS % 83.1 % (40.0-76.0); PLATELET 143 x1000/uL (130-400); RED BLOOD CELL COUNT 3.15 mill/uL (4.2-5.4); RED CELL DISTRIBUTION WIDTH 18.4 % (11.6-14.6)
[2025-07-06 10:35] LABS: CREATININE 0.6 mg/dL (0.6-1.0)
[2025-07-06 10:36] LABS: UREA NITROGEN BLOOD 24 mg/dL (9-23)
[2025-07-06 10:38] LABS: PHOSPHORUS 2.8 mg/dL (2.5-4.9)
[2025-07-06 12:00] VITALS: BP 87/51; PULSE 102; RESP 18; TEMP 36.7; O2SAT 100
[2025-07-06 16:00] VITALS: BP 90/54; PULSE 99; RESP 20; TEMP 36.7; O2SAT 99
[2025-07-06] MEDS: MAGNESIUM 2 G PREMIX 50 ML IV ONE (16:01)
[2025-07-06 20:00] VITALS: BP 105/62; PULSE 114; RESP 20; TEMP 37; O2SAT 100
[2025-07-07] VITALS (7 sets, daily range): BP systolic 109–133; BP diastolic 66–84; PULSE 98–107; RESP 16–18; TEMP 36.3–36.9; O2SAT 98–100
[2025-07-07] MEDS ORDERED: CEFT2VIA13 IV (12:41)
== END 2025-07-07 20:35 | DRG 720 ==
LOC: ER 09:42 → CVICU 11:40 → EDBEDREQ 11:48 → EDBEDREQTM 11:48 → ENRESERV 12:56 → CANRESERV 12:56 → ENRESERV 13:49 → 7WST 07-05 21:20
PROVIDERS: ADMIT Internal Medicine; ATTEND Internal Medicine
DX: A41.50 Gram-negative sepsis, unspecified (principal); R65.21 Severe sepsis with septic shock; N17.0 Acute kidney failure with tubular necrosis; L89.303 Pressure ulcer of unspecified buttock, stage 3; L89.613 Pressure ulcer of right heel, stage 3; R53.2 Functional quadriplegia; G93.41 Metabolic encephalopathy; R13.10 Dysphagia, unspecified; E87.0 Hyperosmolality and hypernatremia; E83.51 Hypocalcemia; E83.39 Other disorders of phosphorus metabolism; L89.620 Pressure ulcer of left heel, unstageable; G91.9 Hydrocephalus, unspecified; D50.8 Other iron deficiency anemias; E11.9 Type 2 diabetes mellitus without complications; J18.9 Pneumonia, unspecified organism; Y95 Nosocomial condition; E86.0 Dehydration; Z93.1 Gastrostomy status; Z98.2 Presence of cerebrospinal fluid drainage device; D50.9 Iron deficiency anemia, unspecified; B96.4 Proteus (mirabilis) (morganii) as the cause of diseases classified elsewhere; I50.9 Heart failure, unspecified; I11.0 Hypertensive heart disease with heart failure; J44.9 Chronic obstructive pulmonary disease, unspecified; N13.6 Pyonephrosis; Z86.73 Personal history of transient ischemic attack (TIA), and cerebral infarction without residual deficits; E87.6 Hypokalemia; Z74.01 Bed confinement status
CPT/HCPCS: 36415; 36573; 36600; 71045; 76770; 80048; 80061; 80076; 80202; 80305; 81003; 82040; 82375; 82550; 82728; 82805; 82962; 83036; 83540; 83550; 83605; 83735; 83880; 83930; 83970; 84100; 84145; 84295; 84439; 84443; 84484; 85025; 85044; 87077; 87186; 93005; 93970; 94070; 94640; 94664; 96365; 96367; 96368; 98960; 99291; A4606; C1725; J0278; J0456; J0612; J0713; J1308; J1650; J1815; J2003; J2543; J3373; J3475; J3480; J3490; J7030; J7060; J0131